=== PATIENT | male | born 1945 ===

== ENCOUNTER 2025-03-25 12:30 | Emergency (ER) | payer MEDICARE, BC ==
[2025-03-25] MEDS ORDERED: Sodium Chloride 0.9% 10 ML Syringe FLUSH PRN (12:59)
[2025-03-25 13:11] LABS: BASOPHILS PERCENT AUTO 0.1 % (0.0-1.0); EOSINOPHILS PERCENT AUTO 2.2 % (1.0-3.0); LYMPHOCYTES PERCENT AUTO 26.2 % (20.5-50.1); MONOCYTES PERCENT AUTO 13.7 % (2-8); NEUTROPHILS PERCENT AUTO 57.8 % (42.2-75.2); PLATELET COUNT,PLT 219 10^3/uL (150-450); RED BLOOD CELL COUNT 4.17 10^6/uL (4.6-6.2); WHITE BLOOD CELL COUNT,WBC 7.4 10^3/uL (5.0-10.0)
[2025-03-25 13:33] LABS: BLOOD UREA NITROGEN,BUN 19.0 mg/dL (7-18); CARBON DIOXIDE,CO2 28.0 mmol/L (21-32); CHLORIDE,CL 105.0 mmol/L (98-107); CREATININE 1.5 mg/dL (0.70-1.30); EST CRCL DRUG DOSING (CG) 39.88 mL/min; GLUCOSE RANDOM 95.0 mg/dL (70-99); POTASSIUM,K 4.2 mmol/L (3.5-5.1); SODIUM,NA 141.0 mmol/L (136-145)
[2025-03-25 13:41] LABS: ESTIMATED GFR 46.0 mL/min (>=60)
[2025-03-25] MEDS: Take Home: Cyclobenzaprine 10 MG Tab, 4 Tab Pack PO ONE (14:13)
== END 2025-03-25 14:13 | disposition home or self-care (01) ==
LOC: DL.ED 12:30
DX: S13.9XXA Sprain of joints and ligaments of unspecified parts of neck, initial encounter (principal); S09.90XA Unspecified injury of head, initial encounter; Z79.02 Long term (current) use of antithrombotics/antiplatelets; Z88.5 Allergy status to narcotic agent; W01.198A Fall on same level from slipping, tripping and stumbling with subsequent striking against other object, initial encounter
CPT/HCPCS: 36415; 70450; 72125; 80048; 84484; 85025; 93005; 99284; A9270